=== PATIENT | male | born 1985 | race Two or more races ===

== ENCOUNTER 2022-03-21 00:14 | Emergency (ER) | payer MEDICAID, OTHER ==
[~2022-03-21] VITALS: Ht 185.4 cm; Wt 107.5 kg
--- NOTE | 2022-03-21 00:40 | NUR ---
BIBBROTHER. HEADACHE, NAUSEA, VOMMITING AND CHEST PAIN NON RADIATING TO L ARM PS 3/10 RADIATING. PATIENT IS ANXIOUS. KEPT ASKING FOR NO SHOTS. PLACED COMFORTABLY IN BED. VITALS CHECKED. - CP, -SOB
[2022-03-21] MEDS ORDERED: LABETALOL HCL IV 100MG VIAL ONE (00:58)
[2022-03-21] MEDS ORDERED: ONDANSETRON HCL/PF - ER 4 MG/2 ML VIAL IV ONE (01:00)
[2022-03-21] MEDS ORDERED: SUMATRIPTAN SUCCINATE 6 MG/0.5 ML VIAL SQ ONE ×2 (01:00→01:29)
[2022-03-21] MEDS ORDERED: METOCLOPRAMIDE HCL 10 MG/2 ML VIAL IV ONE (01:00)
[2022-03-21] MEDS ORDERED: LABETALOL HCL IV 100MG VIAL IV ONE ×2 (01:00→02:30)
--- NOTE | 2022-03-21 01:00 | NUR ---
IV CANNULA G18 INSERTED ON RIGHT AC. BLOOD DRAWN AND SENT TO LAB
[2022-03-21 01:25] LABS: BASOPHILS % (AUTO) 0.3 % (0.0-2.0); EOSINOPHILS % (AUTO) 0.3 % (0.0-6.0); HEMATOCRIT 40 % (39-51); HEMOGLOBIN 13.7 g/dL (13.5-17.5); MEAN CORPUSCULAR HGB CONC 34 g/dl (31.0-36.0); MEAN CORPUSCULAR VOLUME 88 fL (80-96); MONOCYTES # (AUTO) 0.5 K/uL (0.1-1.30); MONOCYTES % (AUTO) 5.5 % (2.0-12.0); NEUTROPHILS # (AUTO) 7.7 K/uL (1.8-8.9); NEUTROPHILS % (AUTO) 82.9 % (43.0-81.0); PLATELET COUNT (AUTO) 202 K/uL (150-450); WHITE BLOOD COUNT (AUTO) 9.3 K/uL (4.3-11.0)
[2022-03-21] MEDS ORDERED: ONDANSETRON HCL/PF 4 MG/2 ML VIAL ONE (01:28)
[2022-03-21] MEDS ORDERED: METOCLOPRAMIDE HCL 10 MG/2 ML VIAL ONE (01:28)
--- NOTE | 2022-03-21 01:30 | NUR ---
PT WHEELED TO CT DEPT
[2022-03-21 01:36] LABS: CALCIUM, SERUM 8.9 mg/dL (8.5-10.1); CARBON DIOXIDE 25 mmol/L (21-32); CHLORIDE 99 mmol/L (98-107); CREATININE 1.2 mg/dL (0.6-1.3); GLUCOSE 117 mg/dL (74-106); POTASSIUM 3.1 mmol/L (3.5-5.1); SODIUM SERUM 135 mmol/L (136-145); UREA NITROGEN, BLOOD 15 mg/dL (7-18)
[2022-03-21] MEDS ORDERED: IOHEXOL-350 100 ML VIAL IV ONE (01:38)
[2022-03-21] MEDS ORDERED: CT SWABBABLE VALVE TRANS SET 1 EA INFUS.SET MC ONE (01:38)
[2022-03-21] MEDS ORDERED: IV NS 0.9% 250 ML IV ONE (01:38)
[2022-03-21] MEDS ORDERED: AMLO-212 PO (04:34)
--- NOTE | 2022-03-21 04:50 | NUR ---
TRIAL WALKING WITH PATIENT DONE.
[2022-03-21] MEDS ORDERED: LORAZEPAM INJ 2 MG/ML VIAL IV ONE (05:00)
--- NOTE | 2022-03-21 05:45 | NUR ---
IV CANNULA REMOVED
--- NOTE | 2022-03-21 05:56 | NUR ---
Patient discharged to home in stable condition. Written and verbal after care instructions given. Patient verbalizes understanding of instruction.
--- NOTE | 2022-03-21 06:03 | NUR ---
Hai becker in [facility] - 03/21/22 at 0604 by DEX PATIENT BROUGHT TO CT DEPT.
[2022-03-21 06:10] VITALS: BP 157/102
== END 2022-03-21 06:10 | disposition home or self-care (01) ==
LOC: ER 01:13
DX: F14.90 Cocaine use, unspecified, uncomplicated (principal); R51.9 Headache, unspecified; R07.89 Other chest pain; I10 Essential (primary) hypertension; Z79.899 Other long term (current) drug therapy
CPT/HCPCS: 99285; 70498; 96374; 71045; 96375; 93005 ×3; 70496; 85025; 80048; 36415; 84484 ×2; 83880; 96372; 96376; 70450; J3030; J3490; J2765; J2405 ×2; J7050; Q9967